=== PATIENT | female | born 2005 | race Asian ===

== ENCOUNTER 2025-02-14 10:42 | Outpatient (AMB) | payer MEDICAID, SELFPAY ==
[2025-02-14 10:55] VITALS: BP 138/83; PULSE 103; RESP 16; TEMP 36; O2SAT 98; BMI 30.2
--- NOTE | 2025-02-14 10:55 | OBCLNT_ITS ---
Vital Signs 02/14/25 10:55 Height 1.57 m Height Method Stated Weight 74.899 kg Weight Measurement Method Standing Scale BMI 30.2 BP 138/83 H Blood Pressure Source Automatic Cuff Blood Pressure Location Left Upper Arm Position Sitting Respiration 16 Pulse 103 H Pulse Source Monitor Temp 96.8 F Temp Source Oral Pulse Oximetry (%) 98 Oxygen Delivery Method Room Air Allergies/Home Meds Allergies & Medications Allergies NKA Allergy (Unknown, Uncoded 02/14/25 10:56) Medication Reconciliation No Known Home Medications 02/14/25 [History Confirmed 02/14/25] Intake Visit Data Collection New Patient or Established: New Patient (never been to [facility]) Reason for Visit:: Seen by Clinical Staff ONLY (RN/MA): No Dumper Bailer Operator Required: No Do You Feel Safe at Home: Yes Authorities Contacted: N/A PCP or OBGYN visit in last 3 months: Yes Hx Now: Yes Are you currently on any form of Control: No Last menstrual period: 07/18/24 Pain Present Currently: No Pain Scale Used: Jeter-Degroot/Numerical Pain scale:: 0 Smoking Status Smoking Status: Never smoker Questionnaires Covid-19 Vaccine Questionnaire Has patient been vacinated for Covid-19 Have you been vacinated for Covid-19: Yes PHQ-9 PHQ-2 Over the last 2 weeks, how often have you been bothered by any of the following problems? 1. Little interest or pleasure in doing things: not at all 2. Feeling down, depressed, or hopeless: not at all Total score: 0 PHQ-9 3. Trouble falling or staying asleep, or sleeping too much: Not at all 4. Feeling tired or having little energy: Not at all 5. Poor appetite or overeating: Not at all 6. Feeling bad about yourself - or that you are a failure or have let yourself or your family down: Not at all 7. Trouble concentrating on things, such as reading the newspaper or watching television: Not at all 8. Moving or speaking so slowly that other people could have noticed? - Or the opposite - being so fidgety or restless that you have been moving around a lot more than usual: not at all 9. Thoughts that you would be better off or of hurting yourself in some way: Not at all Total score: 0 If you checked off any problems, how difficult have these problems made it for you to do your work, take care of things at home, or get along with other people?: not difficult at all Source: Developed by Drs. Rylan Bui, Leesa Ruiz, Ravi Palumbo and colleagues, with an educational george from [employer]. Depression screen completed yes Social History Living Situation History Marital Status: Single Lives With: Family Housing: House Tobacco History Smoking Status: Never smoker Second Hand Smoke Exposure: No Alcohol History Alcohol Intake: Never Domestic Abuse History Do You Feel Safe at Home: Yes Past Medical History Past Medical History Have you ever been diagnosed with any of the following: History of Present Illness HPI Narrative 20-year-old 1 para 0 who comes to the [facility] OB clinic today for her first OB visit with us. Patient has been followed at [facility] for her care. There are no records scanned in the chart yet. Last. Is July 18, 2024. This gives a due date of April 22, 2025. So patient is 30 weeks 5 today. Patient denies any chronic illness. She had a positive history of chlamydia with this that was treated both her and her partner. And test of cure was negative. She denies social habits. Denies surgeries. She was given Tdap at her last visit at [facility]. She is Rh+. Hepatitis B negative. HIV negative. RPR negative. Hep C negative. Her 1 hour glucose was normal. And patient has a follow-up with [facility] February 24. Denies complaints of labor. And reports movement OB Initial Visit Menstrual History Menstrual reliability: definite Flow: normal Menstrual regularity: regular Monthly: Yes Age at menarche: 13 On control pills at conception: No Date of positive home test: 08/24/24 OB History : 1 Para: 0 Hx # Pregnancies: 0 Hx Total # of Abortions (Spontaneous & Elective): 0 # of Living Children: 0 Infection History & Risk Evaluation History of STDs: none HIV risk evaluation: low risk Hepatitis B risk evaluation: low risk Patient or partner has history of Genital Herpes: No Varicella/chicken pox status: immunized Genetic Screening & History Genetic Screening/Teratology Counseling - Includes patient, baby's father, or anyone in either family with: 1. Patient's age 35 years or older as of estimated date of delivery: No 2. Thalassemia (Chinese, Thai, Mediterranean, or Background); MCV less than 80: No 3. Neural Tube Defect (Meningomyelocele, Spina Bifida, or Anencephaly): No 4. Congenital Heart Defect: No 5. Down Syndrome: No 6. Patrice-Sachs (Ashkenazi Rastafarian, Cajun, Ukrainian Stamps): No 7. Stiven Disease (Ashkenazi Rastafarian): No 8. Familial Dysautonomia (Ashkenazi Rastafarian): No 9. Sickle Cell Disease or Trait (): No 10. Hemophilia or other blood disorders: No 11. Muscular Dystrophy: No 12. Cystic Fibrosis: No 13. [place]'s Chorea: No 14. Mental Retardation/Autism: No 15. Other inherited genetic or chromosomal disorder: No 16. Maternal Metabolic Disorder (EG,TYPE 1 Diabetes, PKU): No 17. Patient or baby's father had a child with defects not listed above: No 18. Recurrent loss or a stillbirth: No 19. Medications (including supplements, vitamins, herbs or otc drugs)/illicit/recreational drugs/alcohol since last menstrual period: No 20. Any other: No Infection History 1. Live with someone with TB or exposed to TB: No 2. Rash or viral illness since last menstrual period: No 3. Hepatitis B,C: No 4. History of STD: chlamydia (history of + chlamydia with , partner and patient treated with zithromax, LAYLA was negative) Other (see comments) Source: [employer] OB Flowsheet OB Flowsheet Initial Weight: Not Recorded Date -?-?-?-?-?-?-?-?-?-?-?-?- EGA Weight Edema CTX Effacement BP Fundal ht Pres Dilation Effacement Station Visit Note Alb Glu FHR Mov 02/14/25 -?-?-?-?-?-?-?-?-?-?-?-?- 30w 1d 74.899 kg absent absent 138/83 29 unknown No OB complaints today. Medical release was signed to [facility]. Tdap given to patient last visit. Reports movement. Denies labor complaints. Next visit at [facility] is February 24. PTL precautions provided to patient. Continue vitamins. Increase iron foods and continue IV supplement as well. Return in 2 weeks OB check 154 active Review of Systems Review of Systems Systems Reviewed: All systems reviewed, normal except as documented Exam Narrative Physical exam: Gravid abdomen. heart tones were auscultated. Fundal height 29. General Limitations: no limitations General Appearance: alert, in no apparent distress, comfortable, cooperative, healthy appearing, well developed and well groomed Head Head exam: atraumatic, normocephalic and normal inspection Chest Chest inspection: Present normal inspection and symmetric chest wall rise Resp Respiratory exam: Present normal lung sounds bilaterally Card Cardiovascular exam: Present regular rate, normal rhythm and normal heart sounds Abdominal Abdominal exam: Present soft and normal bowel sounds Psych Psychiatric exam: Present normal affect and normal mood Assessment & Plan Diagnosis / Problem List (1) : Status: Acute Qualifiers: Weeks of gestation: 30 weeks Qualified Code(s): Z3A.30 - 30 weeks gestation of Assessment and Plan: IUP at 30w5 gestation. mild anemia. continue PNV and iron BID. keep MFM appointment 02/24. PYL precaution discussed. advised patient to P/u records at [facility] Additional Plan Follow Up: 2 Weeks Office Procedures OB Clinic LOC & Office Proc's Nursing/Assessment Patient Status: Initial/New Patient OB Clinic Nursing Assessment: BP Monitoring, Update PMH in EMR and Vital Signs OB Clinic Coordination of Care: Consent,records obtained, informed consent, Education Simp Pt/Fam, Lab and Imaging orders and Staff clarify orders Special Needs: Heart tones New Patient Charge New Patient Point Assignment: [id number] New Patient Point Charge: TIP STRETCHER Level 3 ([id number])
== END 2025-02-14 11:16 | disposition home or self-care (01) ==
LOC: HODSOBC 10:42
PROVIDERS: PCP Advanced Practice Midwife; Referring Provider Advanced Practice Midwife; Supervising Provider Advanced Practice Midwife; Visit Provider Advanced Practice Midwife
DX: Z34.03 Encounter for supervision of normal first pregnancy, third trimester (principal); Z3A.30 30 weeks gestation of pregnancy
CPT/HCPCS: 99203; G0463

== ENCOUNTER 2025-02-28 13:01 | Outpatient (AMB) | payer MEDICAID, SELFPAY ==
--- NOTE | 2025-02-28 13:06 | OBCLNT_ITS ---
Vital Signs 02/28/25 13:14 Height 1.57 m Height Method Stated Weight 75.807 kg Weight Measurement Method Standing Scale BMI 30.7 BP 121/78 Blood Pressure Source Automatic Cuff Blood Pressure Location Right Upper Arm Position Sitting Respiration 18 Pulse 85 Pulse Source Monitor Temp 98.2 F Temp Source Temporal Artery Scan Pulse Oximetry (%) 98 Oxygen Delivery Method Room Air Allergies/Home Meds Allergies & Medications Allergies NKA Allergy (Unknown, Uncoded 02/28/25 13:15) Medication Reconciliation No Known Home Medications 02/14/25 [History Confirmed 02/28/25] Intake Visit Data Collection New Patient or Established: Established Patient (seen at [facility] within 3 years) Reason for Visit:: obc Seen by Clinical Staff ONLY (RN/MA): No Resistor Coater Required: No Do You Feel Safe at Home: Yes Authorities Contacted: N/A PCP or OBGYN visit in last 3 months: Yes Hx Now: Yes Are you currently on any form of Control: No Pain Present Currently: No Pain Scale Used: Jeter-Degroot/Numerical Pain scale:: 0 Smoking Status Smoking Status: Never smoker Questionnaires Covid-19 Vaccine Questionnaire Has patient been vacinated for Covid-19 Have you been vacinated for Covid-19: Yes PHQ-9 PHQ-2 Over the last 2 weeks, how often have you been bothered by any of the following problems? 1. Little interest or pleasure in doing things: not at all PHQ-9 3. Trouble falling or staying asleep, or sleeping too much: Not at all 4. Feeling tired or having little energy: Not at all 5. Poor appetite or overeating: Not at all 6. Feeling bad about yourself - or that you are a failure or have let yourself or your family down: Not at all 7. Trouble concentrating on things, such as reading the newspaper or watching television: Not at all 8. Moving or speaking so slowly that other people could have noticed? - Or the opposite - being so fidgety or restless that you have been moving around a lot more than usual: not at all 9. Thoughts that you would be better off or of hurting yourself in some way: Not at all Source: Developed by Drs. Rylan Bui, Leesa Ruiz, Ravi Palumbo and colleagues, with an educational george from [employer]. Depression screen completed yes Social History Living Situation History Lives With: Family Housing: House Tobacco History Smoking Status: Never smoker Second Hand Smoke Exposure: No Alcohol History Alcohol Intake: Never Domestic Abuse History Do You Feel Safe at Home: Yes Past Medical History Past Medical History Have you ever been diagnosed with any of the following: Visit OB Visit Log OB Flowsheet Initial Weight: Not Recorded Date -?-?-?-?-?-?-?-?-?-?-?-?- EGA Weight Edema CTX Effacement BP Fundal ht Pres Dilation Effacement Station Visit Note Alb Glu FHR Mov 02/14/25 -?-?-?-?-?-?-?-?-?-?-?-?- 30w 1d 74.899 kg absent absent 138/83 29 unknown No OB complaints today. Medical release was signed to [facility]. Tdap given to patient last visit. Reports movement. Denies labor complaints. Next visit at [facility] is February 24. PTL precautions provided to patient. Continue vitamins. Increase iron foods and continue IV supplement as well. Return in 2 weeks OB check 154 active 02/28/25 -?-?-?-?-?-?-?-?-?-?-?-?- 32w 1d 75.807 kg absent absent 121/78 32 cephalic fetus active, no labor complaints. patient will p/u records from [facility] today. increase fluids. tpl precaution, fkc bid 150 active GÓMEZ Calculator Estimated Delivery Date Method Current WG Current Estimate 04/24/25 LMP (Certain) 32w 1d Assessment & Plan Diagnosis / Problem List (1) : Status: Acute Qualifiers: Weeks of gestation: 30 weeks Qualified Code(s): Z3A.30 - 30 weeks gestation of Plan ptl precaution, discuss fkc, continue PNV, increase fluid. records pending. rtc 2 week Additional Plan Follow Up: 2 Weeks (2 week obc) Office Procedures OB Clinic LOC & Office Proc's Nursing/Assessment Patient Status: Established Patient OB Clinic Nursing Assessment: Medication Reconciliation, Update PMH in EMR and Vital Signs OB Clinic Coordination of Care: Complex Care and Chronic Disease 1-5, Consent,records obtained, informed consent, Education Simp Pt/Fam and Staff clarify orders Established Patient Charge Established Patient Point Assignment: 85 Established Patient Point Charge: EP Level 3 (80-115)
[2025-02-28 13:14] VITALS: BP 121/78; PULSE 85; RESP 18; TEMP 36.8; O2SAT 98; BMI 30.7
== END 2025-02-28 13:21 | disposition home or self-care (01) ==
LOC: HODSOBC 13:01
PROVIDERS: Supervising Provider Advanced Practice Midwife; Visit Provider Advanced Practice Midwife
DX: O09.613 Supervision of young primigravida, third trimester (principal); Z3A.32 32 weeks gestation of pregnancy
CPT/HCPCS: 99213; G0463

== ENCOUNTER 2025-03-14 12:57 | Outpatient (AMB) | payer MEDICAID, SELFPAY ==
--- NOTE | 2025-03-14 13:10 | AMB.OBVISIT ---
Vital Signs 03/14/25 13:19 Height 1.57 m Height Method Stated Weight 76.884 kg Weight Measurement Method Standing Scale BMI 31.1 BP 123/81 Blood Pressure Source Automatic Cuff Blood Pressure Location Left Upper Arm Position Sitting Respiration 18 Pulse 91 Pulse Source Monitor Temp 97.2 F Temp Source Oral Pulse Oximetry (%) 97 Oxygen Delivery Method Room Air Allergies/Home Meds Allergies & Medications Allergies NKA Allergy (Unknown, Uncoded 03/14/25 13:10) Medication Reconciliation No Known Home Medications 02/14/25 [History Confirmed 03/14/25] Intake Visit Data Collection New Patient or Established: Established Patient (seen at [facility] within 3 years) Reason for Visit:: obc Seen by Clinical Staff ONLY (RN/MA): No Wood Barker Required: No Do You Feel Safe at Home: Yes Authorities Contacted: N/A PCP or OBGYN visit in last 3 months: Yes Date of Last PCP or OBGYN visit: 02/14/25 Hx Now: Yes Are you currently on any form of Control: No Pain Present Currently: No Pain Scale Used: Jeter-Degroot/Numerical Pain scale:: 0 Smoking Status Smoking Status: Never smoker Questionnaires Covid-19 Vaccine Questionnaire Has patient been vacinated for Covid-19 Have you been vacinated for Covid-19: Yes PHQ-9 PHQ-2 Over the last 2 weeks, how often have you been bothered by any of the following problems? 1. Little interest or pleasure in doing things: not at all 2. Feeling down, depressed, or hopeless: not at all Total score: 0 PHQ-9 3. Trouble falling or staying asleep, or sleeping too much: Not at all 4. Feeling tired or having little energy: Not at all 5. Poor appetite or overeating: Not at all 6. Feeling bad about yourself - or that you are a failure or have let yourself or your family down: Not at all 7. Trouble concentrating on things, such as reading the newspaper or watching television: Not at all 8. Moving or speaking so slowly that other people could have noticed? - Or the opposite - being so fidgety or restless that you have been moving around a lot more than usual: not at all 9. Thoughts that you would be better off or of hurting yourself in some way: Not at all Total score: 0 If you checked off any problems, how difficult have these problems made it for you to do your work, take care of things at home, or get along with other people?: not difficult at all Source: Developed by Drs. Rylan Bui, Leesa Ruiz, Ravi Palumbo and colleagues, with an educational george from [employer]. Depression screen completed yes Social History Living Situation History Lives With: Family Housing: House Tobacco History Smoking Status: Never smoker Second Hand Smoke Exposure: No Alcohol History Alcohol Intake: Never Domestic Abuse History Do You Feel Safe at Home: Yes Past Medical History Past Medical History Have you ever been diagnosed with any of the following: Care OB Visit Log OB Flowsheet Initial Weight: Not Recorded Date <del>?</del> EGA Weight Edema CTX Effacement BP Fundal ht Pres Dilation Effacement Station Visit Note Alb Glu FHR Mov 02/14/25 <del>?</del> 30w 1d 74.899 kg absent absent 138/83 29 unknown No OB complaints today. Medical release was signed to [facility]. Tdap given to patient last visit. Reports movement. Denies labor complaints. Next visit at [facility] is February 24. PTL precautions provided to patient. Continue vitamins. Increase iron foods and continue IV supplement as well. Return in 2 weeks OB check 154 active 02/28/25 <del>?</del> 32w 1d 75.807 kg absent absent 121/78 32 cephalic fetus active, no labor complaints. patient will p/u records from [facility] today. increase fluids. tpl precaution, fkc bid 150 active 03/14/25 <del>?</del> 34w 1d 76.884 kg absent absent 123/81 34 cephalic fetus active, no PTL complaints, no leaking or bleeding, GBS NV, ptl precaution, fkc bid.rtc 2 week 154 active GÓMEZ Calculator Estimated Delivery Date Method Current WG Current Estimate 04/24/25 Ultrasound #1 34w 1d Other Estimates 04/24/25 LMP (Certain) 34w 1d Assessment & Plan Diagnosis / Problem List (1) Encounter for care in third trimester of first : Status: Acute Plan discuss ptl precaution, fkc bid, discuss diet nad weight. walk 40 minute daily, rtc 2 week obc, GBS nv Additional Plan Follow Up: 2 Weeks (obc) Office Procedures OB Clinic LOC & Office Proc's Nursing/Assessment Patient Status: Established Patient OB Clinic Nursing Assessment: BP Monitoring, Medication Reconciliation, Update PMH in EMR and Vital Signs OB Clinic Coordination of Care: Consent,records obtained, informed consent, Education Simp Pt/Fam and Staff clarify orders Special Needs: Heart tones Established Patient Charge Established Patient Point Assignment: 105 Established Patient Point Charge: EP Level 3 (80-115)
[2025-03-14 13:19] VITALS: BP 123/81; PULSE 91; RESP 18; TEMP 36.2; O2SAT 97; BMI 31.1
== END 2025-03-14 13:41 | disposition home or self-care (01) ==
LOC: HODSOBC 12:57
PROVIDERS: Supervising Provider Advanced Practice Midwife; Visit Provider Advanced Practice Midwife
DX: O09.613 Supervision of young primigravida, third trimester (principal); Z3A.34 34 weeks gestation of pregnancy
CPT/HCPCS: 81001; 99213; G0463

== ENCOUNTER 2025-03-28 12:52 | Outpatient (AMB) | payer MEDICAID, SELFPAY ==
[2025-03-28 13:18] VITALS: BP 123/81; PULSE 90; RESP 18; TEMP 36.2; O2SAT 98; BMI 31.5
--- NOTE | 2025-03-28 13:18 | OBCLNT_ITS ---
Vital Signs 03/28/25 13:18 Height 1.57 m Height Method Stated Weight 77.791 kg Weight Measurement Method Standing Scale BMI 31.5 BP 123/81 Blood Pressure Source Automatic Cuff Blood Pressure Location Left Upper Arm Position Sitting Respiration 18 Pulse 90 Pulse Source Monitor Temp 97.2 F Temp Source Oral Pulse Oximetry (%) 98 Oxygen Delivery Method Room Air Allergies/Home Meds Allergies & Medications Allergies NKA Allergy (Unknown, Uncoded 03/28/25 13:19) Medication Reconciliation No Known Home Medications 02/14/25 [History Confirmed 03/28/25] Intake Visit Data Collection New Patient or Established: Established Patient (seen at [facility] within 3 years) Reason for Visit:: obc Seen by Clinical Staff ONLY (RN/MA): No Railway Signal Technician Required: No Do You Feel Safe at Home: Yes Authorities Contacted: N/A PCP or OBGYN visit in last 3 months: Yes Date of Last PCP or OBGYN visit: 03/14/25 Hx Now: Yes Are you currently on any form of Control: No Pain Present Currently: No Pain Scale Used: Jeter-Degroot/Numerical Pain scale:: 0 Smoking Status Smoking Status: Never smoker Questionnaires Covid-19 Vaccine Questionnaire Has patient been vacinated for Covid-19 Have you been vacinated for Covid-19: Yes PHQ-9 PHQ-2 Over the last 2 weeks, how often have you been bothered by any of the following problems? 1. Little interest or pleasure in doing things: not at all 2. Feeling down, depressed, or hopeless: not at all Total score: 0 PHQ-9 5. Poor appetite or overeating: Not at all 6. Feeling bad about yourself - or that you are a failure or have let yourself or your family down: Not at all 7. Trouble concentrating on things, such as reading the newspaper or watching television: Not at all 8. Moving or speaking so slowly that other people could have noticed? - Or the opposite - being so fidgety or restless that you have been moving around a lot more than usual: not at all 9. Thoughts that you would be better off or of hurting yourself in some way: Not at all If you checked off any problems, how difficult have these problems made it for you to do your work, take care of things at home, or get along with other people?: not difficult at all Source: Developed by Drs. Rylan Bui, Leesa Ruiz, Ravi Palumbo and colleagues, with an educational george from [employer] Depression screen completed yes Social History Living Situation History Lives With: Family Housing: House Tobacco History Smoking Status: Never smoker Second Hand Smoke Exposure: No Alcohol History Alcohol Intake: Never Domestic Abuse History Do You Feel Safe at Home: Yes Care OB Visit Log OB Flowsheet Initial Weight: Not Recorded Date -?-?-?-?-?-?-?-?-?-?-?-?- EGA Weight BP Alb Glu CTX Pres Fundal ht FHR Mov Dilation Station Effacement Hx Notes Visit Note 02/14/25 -?-?-?-?-?-?-?-?-?-?-?-?- 30w 1d 74.899 kg 138/83 absent unknown 29 154 active No OB complaints today. Medical release was signed to [facility]. Tdap given to patient last visit. Reports movement. Denies labor complaints. Next visit at [facility] is February 24. PTL precautions provided to patient. Continue vitamins. Increase iron foods and continue IV supplement as well. Return in 2 weeks OB check 02/28/25 -?-?-?-?-?-?-?-?-?-?-?-?- 32w 1d 75.807 kg 121/78 absent cephalic 32 150 active fetus active, no pret erm labor complaints. patient will p/u records from [facility] today. increase fluids. tpl precaution, fkc bid 03/14/25 -?-?-?-?-?-?-?-?-?-?-?-?- 34w 1d 76.884 kg 123/81 absent cephalic 34 154 active fetus active, no PTL complaints, no leaking or bleeding, GBS NV, ptl precaution, fkc bid.rtc 2 week 03/28/25 -?-?-?-?-?-?-?-?-?-?-?-?- 36w 1d 77.791 kg 123/81 absent cephalic 36 156 active no ob complaints, fetus active, no labor complaints GBS today, discuss labor precaution, fkc bid, discuss danger s/s. RTC 1 week GBS today, discuss labor pre caution,discuss fkc bid, discuss danger s/s. RTC 1 week. discuss weight gain and exercise. reviewed FKC bid GÓMEZ Calculator Estimated Delivery Date Method Current WG Current Estimate 04/24/25 Ultrasound #1 36w 1d Other Estimates 04/24/25 LMP (Certain) 36w 1d Comments: 20 yo lmp 07/18/24. EDC 04/24/25. O+,abs-,rpr;;nr, rub imm, hbsag-,hiv-,HC-, GC-/CT+, LAYLA-, 1hr gtt wnl, TDAP given Office Procedures OB Clinic LOC & Office Proc's Nursing/Assessment Patient Status: Established Patient OB Clinic Nursing Assessment: Medication Reconciliation, Update PMH in EMR and Vital Signs OB Clinic Coordination of Care: Education Complex Pt/Fam, Consent,records obtained, informed consent and Staff clarify orders Special Needs: Heart tones Established Patient Charge Established Patient Point Assignment: 95 Established Patient Point Charge: EP Level 3 (80-115) Assessment & Plan Diagnosis / Problem List (1) Encounter for care in third trimester of first : Status: Acute Plan GBS today, discuss labor precaution and ER precaution, FKC bid. increase fluid, discuss diet and exercise. continue PNV, RTC 1 week Additional Plan Follow Up: 1 Week (obc)
== END 2025-03-28 13:34 | disposition home or self-care (01) ==
LOC: HODSOBC 12:52
PROVIDERS: Supervising Provider Advanced Practice Midwife; Visit Provider Advanced Practice Midwife
DX: O09.613 Supervision of young primigravida, third trimester (principal); Z3A.36 36 weeks gestation of pregnancy
CPT/HCPCS: 81001; 99213; G0463

== ENCOUNTER 2025-04-04 13:25 | Outpatient (AMB) | payer MEDICAID, SELFPAY ==
[2025-04-04 13:29] VITALS: BP 120/81; PULSE 80; RESP 16; TEMP 36.6; O2SAT 98; BMI 31.7
--- NOTE | 2025-04-04 13:29 | OBCLNT_ITS ---
Vital Signs 04/04/25 13:29 Height 1.57 m Height Method Stated Weight 78.245 kg Weight Measurement Method Standing Scale BMI 31.7 BP 120/81 Blood Pressure Source Automatic Cuff Blood Pressure Location Right Upper Arm Position Sitting Respiration 16 Pulse 80 Pulse Source Monitor Temp 97.9 F Temp Source Oral Pulse Oximetry (%) 98 Oxygen Delivery Method Room Air Allergies/Home Meds Allergies & Medications Allergies NKA Allergy (Unknown, Uncoded 04/04/25 13:30) Medication Reconciliation No Known Home Medications 02/14/25 [History Confirmed 04/04/25] Intake Visit Data Collection New Patient or Established: Established Patient (seen at [facility] within 3 years) Reason for Visit:: CARE Seen by Clinical Staff ONLY (RN/MA): No Miter Saw Operator Required: No Do You Feel Safe at Home: Yes Authorities Contacted: N/A PCP or OBGYN visit in last 3 months: Yes Hx Now: Yes Are you currently on any form of Control: No Pain Present Currently: No Pain Scale Used: Jeter-Degroot/Numerical Pain scale:: 0 Smoking Status Smoking Status: Never smoker Questionnaires Covid-19 Vaccine Questionnaire Has patient been vacinated for Covid-19 Have you been vacinated for Covid-19: Yes PHQ-9 PHQ-2 Over the last 2 weeks, how often have you been bothered by any of the following problems? 1. Little interest or pleasure in doing things: not at all 2. Feeling down, depressed, or hopeless: not at all Total score: 0 PHQ-9 3. Trouble falling or staying asleep, or sleeping too much: Not at all 4. Feeling tired or having little energy: Not at all 5. Poor appetite or overeating: Not at all 6. Feeling bad about yourself - or that you are a failure or have let yourself or your family down: Not at all 7. Trouble concentrating on things, such as reading the newspaper or watching television: Not at all 8. Moving or speaking so slowly that other people could have noticed? - Or the opposite - being so fidgety or restless that you have been moving around a lot more than usual: not at all 9. Thoughts that you would be better off or of hurting yourself in some way: Not at all Total score: 0 Source: Developed by Leesa Guzman B.W. Joseph, Ravi Palumbo and colleagues, with an educational george from [employer]. Depression screen completed yes Social History Living Situation History Lives With: Family Housing: House Tobacco History Smoking Status: Never smoker Second Hand Smoke Exposure: No Alcohol History Alcohol Intake: Never Domestic Abuse History Do You Feel Safe at Home: Yes Care OB Visit Log OB Flowsheet Initial Weight: Not Recorded Date -?-?-?-?-?-?-?-?-?-?-?-?- EGA Weight BP Alb Glu CTX Pres Fundal ht FHR Mov Dilation Station Effacement Hx Notes Visit Note 02/14/25 -?-?-?-?-?-?-?-?-?-?-?-?- 30w 1d 74.899 kg 138/83 absent unknown 29 154 active No OB complaints today. Medical release was signed to [facility]. Tdap given to patient last visit. Reports movement. Denies labor complaints. Next visit at maternal[facility] medicine is February 24. PTL precautions provided to patient. Continue vitamins. Increase iron foods and continue IV supplement as well. Return in 2 weeks OB check 02/28/25 -?-?-?-?-?-?-?-?-?-?-?-?- 32w 1d 75.807 kg 121/78 absent cephalic 32 150 active fetus active, no labor complaints. patient will p/u records from [facility] today. increase fluids. tpl precaution, fkc bid 03/14/25 -?-?-?-?-?-?-?-?-?-?-?-?- 34w 1d 76.884 kg 123/81 absent cephalic 34 154 active fetus active, no PTL complaints, no leaking or bleeding, GBS NV, ptl precaution, fkc bid.rtc 2 week 03/28/25 -?-?-?-?-?-?-?-?-?-?-?-?- 36w 1d 77.791 kg 123/81 absent cephalic 36 156 active no ob complaints, fetus active, no labor complaints GBS today, discuss labor precaution, fkc bid, discuss danger s/s. RTC 1 week GBS today, discuss labor pre caution,discuss fkc bid, discuss danger s/s. RTC 1 week. discuss weight gain and exercise. reviewed FKC bid 04/04/25 -?-?-?-?-?-?-?-?-?-?-?-?- 37w 1d 78.245 kg 120/81 absent cephalic 37 156 active c/o pressure and cramps, reports good FM, denies leaking or bleeding discuss FKC bid, discuss labor precaution and ER precaution. increase fluids. rtc 1 week GÓMEZ Calculator Estimated Delivery Date Method Current WG Current Estimate 04/24/25 Ultrasound #1 37w 1d Other Estimates 04/24/25 LMP (Certain) 37w 1d Comments: 20 yo , LMP 07/18/25. EDC 04/22/25. O+,abs-,rpr;;nr, rub imm, hbsag-,hiv-,HC-, GC-, CT+, LAYLA-, 3rd tri lab wnl Office Procedures OB Clinic LOC & Office Proc's Nursing/Assessment Patient Status: Established Patient OB Clinic Nursing Assessment: Medication Reconciliation, Update PMH in EMR and Vital Signs OB Clinic Coordination of Care: Complex Care and Chronic Disease 1-5, Consent,records obtained, informed consent, Education Simp Pt/Fam, Lab and Imaging orders, Results/Orders obtained and Staff clarify orders Special Needs: Heart tones Established Patient Charge Established Patient Point Assignment: 135 Established Patient Point Charge: EP Level 4 (120-155) Assessment & Plan Diagnosis / Problem List (1) Encounter for care in third trimester of first : Status: Acute Plan discuss labor precaution, fkc bid. increase fluid. discussed ER precaution, rtc 1 week obc Additional Plan Follow Up: 1 Week (obc)
== END 2025-04-04 14:13 | disposition home or self-care (01) ==
PROVIDERS: Supervising Provider Advanced Practice Midwife; Visit Provider Advanced Practice Midwife
DX: O09.613 Supervision of young primigravida, third trimester (principal); Z3A.37 37 weeks gestation of pregnancy
CPT/HCPCS: 99214; G0463

== ENCOUNTER 2025-04-11 13:51 | Outpatient (AMB) | payer MEDICAID, SELFPAY ==
[2025-04-11 14:29] VITALS: BP 137/80; PULSE 80; RESP 16; TEMP 36.5; O2SAT 98; BMI 32.2
--- NOTE | 2025-04-11 14:29 | OBCLNT_ITS ---
Vital Signs 04/11/25 14:29 Height 1.57 m Height Method Stated Weight 79.379 kg Weight Measurement Method Standing Scale BMI 32.2 BP 137/80 H Blood Pressure Source Automatic Cuff Blood Pressure Location Right Upper Arm Position Sitting Respiration 16 Pulse 80 Pulse Source Monitor Temp 97.7 F Temp Source Oral Pulse Oximetry (%) 98 Oxygen Delivery Method Room Air Allergies/Home Meds Allergies & Medications Allergies NKA Allergy (Unknown, Uncoded 04/11/25 14:30) Medication Reconciliation No Known Home Medications 02/14/25 [History Confirmed 04/11/25] Intake Visit Data Collection New Patient or Established: Established Patient (seen at [facility] within 3 years) Reason for Visit:: CARE Seen by Clinical Staff ONLY (RN/MA): No Shuttle Repairer Required: No Do You Feel Safe at Home: Yes Authorities Contacted: N/A PCP or OBGYN visit in last 3 months: Yes Hx Now: Yes Are you currently on any form of Control: No Pain Present Currently: No Pain Scale Used: Jeter-Degroot/Numerical Pain scale:: 0 Smoking Status Smoking Status: Never smoker Questionnaires Covid-19 Vaccine Questionnaire Has patient been vacinated for Covid-19 Have you been vacinated for Covid-19: Yes PHQ-9 PHQ-2 Over the last 2 weeks, how often have you been bothered by any of the following problems? 1. Little interest or pleasure in doing things: not at all 2. Feeling down, depressed, or hopeless: not at all Total score: 0 PHQ-9 3. Trouble falling or staying asleep, or sleeping too much: Not at all 4. Feeling tired or having little energy: Not at all 5. Poor appetite or overeating: Not at all 6. Feeling bad about yourself - or that you are a failure or have let yourself or your family down: Not at all 7. Trouble concentrating on things, such as reading the newspaper or watching television: Not at all 8. Moving or speaking so slowly that other people could have noticed? - Or the opposite - being so fidgety or restless that you have been moving around a lot more than usual: not at all 9. Thoughts that you would be better off or of hurting yourself in some way: Not at all Total score: 0 Source: Developed by Drs. Rylan Bui, Leesa Ruiz, Ravi Palumbo and colleagues, with an educational george from [employer]. Depression screen completed yes Social History Living Situation History Lives With: Family Housing: House Tobacco History Smoking Status: Never smoker Second Hand Smoke Exposure: No Alcohol History Alcohol Intake: Never Domestic Abuse History Do You Feel Safe at Home: Yes Care OB Visit Log OB Flowsheet Initial Weight: Not Recorded Date -?-?-?-?-?-?-?-?-?-?-?-?- EGA Weight BP Alb Glu CTX Pres Fundal ht FHR Mov Dilation Station Effacement Hx Notes Visit Note 02/14/25 -?-?-?-?-?-?-?-?-?-?-?-?- 30w 1d 74.899 kg 138/83 absent unknown 29 154 active No OB complaints today. Medical release was signed to [facility]. Tdap given to patient last visit. Reports movement. Denies labor complaints. Next visit at maternal- medicine is February 24. PTL precautions provided to patient. Continue vitamins. Increase iron foods and continue IV supplement as well. Return in 2 weeks OB check 02/28/25 -?-?-?-?-?-?-?-?-?-?-?-?- 32w 1d 75.807 kg 121/78 absent cephalic 32 150 active fetus active, no labor complaints. patient will p/u records from [facility] today. increase fluids. tpl precaution, fkc bid 03/14/25 -?-?-?-?-?-?-?-?-?-?-?-?- 34w 1d 76.884 kg 123/81 absent cephalic 34 154 active fetus active, no PTL complaints, no leaking or bleeding, GBS NV, ptl precaution, fkc bid.rtc 2 week 03/28/25 -?-?-?-?-?-?-?-?-?-?-?-?- 36w 1d 77.791 kg 123/81 absent cephalic 36 156 active no ob complaints, fetus active, no labor complaints GBS today, discuss labor precaution, fkc bid, discuss danger s/s. RTC 1 week GBS today, discuss labor pre caution,discuss fkc bid, discuss danger s/s. RTC 1 week. discuss weight gain and exercise. reviewed FKC bid 04/04/25 -?-?-?-?-?-?-?-?-?-?-?-?- 37w 1d 78.245 kg 120/81 absent cephalic 37 156 active c/o pressure and cramps, reports good FM, denies leaking or bleeding discuss FKC bid, discuss labor precaution and ER precaution. increase fluids. rtc 1 week 04/11/25 -?-?-?-?-?-?-?-?-?-?-?-?- 38w 1d 79.379 kg 137/80 occasional cephalic 37 36 active 1 -3 50 c/o increased pressure and cramps, no LOF or bleeding, fetus active discuss labor precaution, fkc bid, comfort measure for prodromal labor. discuss danger s/s and ER precaution GÓMEZ Calculator Estimated Delivery Date Method Current WG Current Estimate 04/24/25 Ultrasound #1 38w 1d Other Estimates 04/24/25 LMP (Certain) 38w 1d Notes Visit Date: 04/11/25 Last Updated by: Adry Farmer CNM 20 yo . lmp: 07/18/24. EDC 04/24/24, O+,abs-,rpr;;nr, GC-/CT+, LAYLA: GC-?CT-, GTT normal Office Procedures OB Clinic LOC & Office Proc's Nursing/Assessment Patient Status: Established Patient OB Clinic Nursing Assessment: Medication Reconciliation, Update PMH in EMR and Vital Signs OB Clinic Coordination of Care: Complex Care and Chronic Disease 1-5, Consent,records obtained, informed consent, Education Simp Pt/Fam, Lab and Imaging orders, Results/Orders obtained and Staff clarify orders Special Needs: Heart tones Established Patient Charge Established Patient Point Assignment: 135 Established Patient Point Charge: EP Level 4 (120-155) Assessment & Plan Diagnosis / Problem List (1) Encounter for care in third trimester of first : Status: Acute Plan Discussed labor precautions with patient. Discussed ER precautions and danger signs and symptoms. Discussed PIH precautions. Patient to do kick count twice a day. Return in a week OB Additional Plan Follow Up: 1 Week (obc)
== END 2025-04-11 14:44 | disposition home or self-care (01) ==
LOC: HODSOBC 13:51
PROVIDERS: PCP Advanced Practice Midwife; Referring Provider Advanced Practice Midwife; Supervising Provider Advanced Practice Midwife; Visit Provider Advanced Practice Midwife
DX: Z34.03 Encounter for supervision of normal first pregnancy, third trimester (principal); Z3A.38 38 weeks gestation of pregnancy
CPT/HCPCS: 99214; G0463

== ENCOUNTER 2025-04-19 13:09 | Outpatient (AMB) | payer MEDICAID, SELFPAY ==
[2025-04-19 13:20] VITALS: BP 119/71; PULSE 81; RESP 17; TEMP 36.8; O2SAT 98; BMI 33.3
--- NOTE | 2025-04-19 13:20 | OBCLNT_ITS ---
Vital Signs 04/19/25 13:20 Height 1.55 m Height Method Stated Weight 79.946 kg Weight Measurement Method Standing Scale BMI 33.3 BP 119/71 Blood Pressure Source Automatic Cuff Blood Pressure Location Right Upper Arm Position Sitting Respiration 17 Pulse 81 Pulse Source Monitor Temp 98.3 F Temp Source Temporal Artery Scan Pulse Oximetry (%) 98 Oxygen Delivery Method Room Air Allergies/Home Meds Allergies & Medications Allergies NKA Allergy (Unknown, Uncoded 04/19/25 13:21) Medication Reconciliation No Known Home Medications 02/14/25 [History Confirmed 04/19/25] Intake Visit Data Collection New Patient or Established: Established Patient (seen at [facility] within 3 years) Reason for Visit:: OBC Seen by Clinical Staff ONLY (RN/MA): No Pie Icer Machine Required: No Do You Feel Safe at Home: Yes Authorities Contacted: N/A PCP or OBGYN visit in last 3 months: Yes Date of Last PCP or OBGYN visit: 04/11/25 Hx Now: Yes Are you currently on any form of Control: No Pain Present Currently: No Pain Scale Used: Jeter-Degroot/Numerical Pain scale:: 0 Smoking Status Smoking Status: Never smoker Questionnaires Covid-19 Vaccine Questionnaire Has patient been vacinated for Covid-19 Have you been vacinated for Covid-19: Yes PHQ-9 PHQ-2 Over the last 2 weeks, how often have you been bothered by any of the following problems? 1. Little interest or pleasure in doing things: not at all 2. Feeling down, depressed, or hopeless: not at all Total score: 0 PHQ-9 3. Trouble falling or staying asleep, or sleeping too much: Not at all 4. Feeling tired or having little energy: Not at all 5. Poor appetite or overeating: Not at all 6. Feeling bad about yourself - or that you are a failure or have let yourself or your family down: Not at all 7. Trouble concentrating on things, such as reading the newspaper or watching television: Not at all 8. Moving or speaking so slowly that other people could have noticed? - Or the opposite - being so fidgety or restless that you have been moving around a lot more than usual: not at all 9. Thoughts that you would be better off or of hurting yourself in some way: Not at all Total score: 0 If you checked off any problems, how difficult have these problems made it for you to do your work, take care of things at home, or get along with other people?: not difficult at all Source: Developed by Drs. Rylan Bui, Leesa Ruiz, Ravi Palumbo and colleagues, with an educational george from [employer]. Depression screen completed yes Social History Living Situation History Lives With: Family Housing: House Tobacco History Smoking Status: Never smoker Second Hand Smoke Exposure: No Alcohol History Alcohol Intake: Never Domestic Abuse History Do You Feel Safe at Home: Yes Care OB Visit Log OB Flowsheet Initial Weight: Not Recorded Date -?-?-?-?-?-?-?-?-?-?-?-?- EGA Weight BP Alb Glu CTX Pres Fundal ht FHR Mov Dilation Station Effacement Hx Notes Visit Note 02/14/25 -?-?-?-?-?-?-?-?-?-?-?-?- 30w 1d 74.899 kg 138/83 absent unknown 29 154 active No OB complaints today. Medical release was signed to [facility]. Tdap given to patient last visit. Reports movement. Denies labor complaints. Next visit at maternal- medicine is February 24. PTL precautions provided to patient. Continue vitamins. Increase iron foods and continue IV supplement as well. Return in 2 weeks OB check 02/28/25 -?-?-?-?-?-?-?-?-?-?-?-?- 32w 1d 75.807 kg 121/78 absent cephalic 32 150 active fetus active, no labor complaints. patient will p/u records from [facility] today. increase fluids. tpl precaution, fkc bid 03/14/25 -?-?-?-?-?-?-?-?-?-?-?-?- 34w 1d 76.884 kg 123/81 absent cephalic 34 154 active fetus active, no PTL complaints, no leaking or bleeding, GBS NV, ptl precaution, fkc bid.rtc 2 week 03/28/25 -?-?-?-?-?-?-?-?-?-?-?-?- 36w 1d 77.791 kg 123/81 absent cephalic 36 156 active no ob complaints, fetus active, no labor complaints GBS today, discuss labor precaution, fkc bid, discuss danger s/s. RTC 1 week GBS today, discuss labor pre caution,discuss fkc bid, discuss danger s/s. RTC 1 week. discuss weight gain and exercise. reviewed FKC bid 04/04/25 -?-?-?-?-?-?-?-?-?-?-?-?- 37w 1d 78.245 kg 120/81 absent cephalic 37 156 active c/o pressure and cramps, reports good FM, denies leaking or bleeding discuss FKC bid, discuss labor precaution and ER precaution. increase fluids. rtc 1 week 04/11/25 -?-?-?-?-?-?-?-?-?-?-?-?- 38w 1d 79.379 kg 137/80 occasional cephalic 37 36 active 1 -3 50 c/o increased pressure and cramps, no LOF or bleeding, fetus active discuss labor precaution, fkc bid, comfort measure for prodromal labor. discuss danger s/s and ER precaution 04/19/25 -?-?-?-?-?-?-?-?-?-?-?-?- 39w 2d 79.946 kg 119/71 occasional cephalic 38 145 active 4 -1 70 increase pressure and cramps, no leaking or bleeding,fetus active sched IOL 04/24/25. discuss labor precaution, fkc bid, discuss ER precaution and danger s/s.rtc 1 week GÓMEZ Calculator Estimated Delivery Date Method Current WG Current Estimate 04/24/25 Ultrasound #1 39w 2d Other Estimates 04/24/25 LMP (Certain) 39w 2d Notes Visit Date: 04/19/25 Last Updated by: Adry Farmer CNM GBS- Visit Date: 04/11/25 Last Updated by: Adry Farmer CNM 20 yo . lmp: 07/18/24. EDC 04/24/24, O+,abs-,rpr;;nr, GC-/CT+, LAYLA: GC-?CT-, GTT normal Office Procedures OB Clinic LOC & Office Proc's Nursing/Assessment Patient Status: Established Patient OB Clinic Nursing Assessment: Medication Reconciliation, Update PMH in EMR and Vital Signs OB Clinic Coordination of Care: Complex Care and Chronic Disease 1-5, Consent ,records obtained, informed consent, Education Simp Pt/Fam and Staff clarify orders Special Needs: Heart tones Established Patient Charge Established Patient Point Assignment: 115 Established Patient Point Charge: EP Level 3 (80-115) Assessment & Plan Diagnosis / Problem List (1) Encounter for care in third trimester of first : Status: Acute Plan schedule IOL 04/24/25, review labor precaution, fkc bid. ER precaution and danger s/s. rtc 04/24 for ob check Additional Plan Follow Up: 1 Week (obc)
== END 2025-04-19 13:33 | disposition home or self-care (01) ==
LOC: HODSOBC 13:09
PROVIDERS: PCP Advanced Practice Midwife; Referring Provider Advanced Practice Midwife; Supervising Provider Advanced Practice Midwife; Visit Provider Advanced Practice Midwife
DX: Z34.03 Encounter for supervision of normal first pregnancy, third trimester (principal); Z3A.39 39 weeks gestation of pregnancy
CPT/HCPCS: 99213; G0463

== ENCOUNTER 2025-04-19 23:58 | Inpatient (IN) | payer BC, MEDICAID, SELFPAY ==
[2025-04-20] VITALS (218 sets, daily range): BP systolic 117–184; BP diastolic 59–101; PULSE 52–162; RESP 18–98; TEMP 36.6–37.5; O2SAT 80–100; BMI 33.6
[2025-04-20 03:18] LABS: Basophils # (Auto) 0.1 Thou/mm3 (0.0-0.2); Basophils % (Auto) 0 % (0-2.5); Eosinophils # (Auto) 0.2 Thou/mm3 (0.0-0.5); Eosinophils % (Auto) 1 % (0-10); Hematocrit 31.5 % (36.0-46.0); Hemoglobin 11.1 g/dL (12.0-16.0); Immature Granulocytes % (Auto) 1 % (0-0); Immature Granulocytes Auto 0.09 Thou/mm3 (0.00-0.00); Lymphocytes # (Auto) 2.8 Thou/mm3 (1.0-4.8); Lymphocytes % (Auto) 17 % (10-50); Mean Corpuscular HGB Conc 35.2 g/dl (31.0-37.0); Mean Corpuscular Hemoglobin 23.5 pg (25.0-35.0); Mean Corpuscular Volume 67 fL (80-100); Monocytes % (Auto) 6 % (0-12); Neutrophils # (Auto) 12.3 Thou/mm3 (1.8-7.7); Neutrophils % (Auto) 75 % (37-80); Nucleated Red Blood Cell % 0 /100 WBC (0); Platelet Count 332 Thou/mm3 (140-440); RDW Standard Deviation 33.5 fL (36.4-46.3); Red Blood Count 4.72 Miln/mm3 (4.00-5.20); White Blood Count 16.3 Thou/mm3 (4.5-11.0)
[2025-04-20 03:52] LABS: Syphilis Nonreactive (Nonreactive)
--- NOTE | 2025-04-20 08:07 | PD.LDHP ---
Documentation for date of: 04/20/25 OB Labor/Induct. HPI History of Present Illness Chief complaint: labor : 1 Para: 0 Term pregnancies: 0 pregnancies: 0 Living children: 0 History of Abortions: Spontaneous and Elective: 0 History of sections: No Date of last menstrual period: 07/13/24 GÓMEZ: 04/24/25 Gestational Age (weeks): 39 Gestational Age (days): 3 Gestational age based on last menstrual period: 40 History of present illness: This is a 20-year-old 1 para 0 presents to labor and delivery complaining of contractions that got worse since 10 PM. Patient has been followed by [facility] and [facility]. First visit was a 8 weeks. Last. July 18, 2024. Estimated due date 12/23/2024. Patient denies social habits. Denies surgery. Denies chronic illness. History of positive chlamydia with the that was treated along with her partner and test of cure was negative. GBS negative. Patient is O+, antibody screen negative, RPR nonreactive, rubella immune, hepatitis B negative, hep C negative, HIV negative, her iron stores have been great she is not anemic she had a normal 1 hour. And GBS negative. Denies leaking or bleeding History of Present Dating criteria: LMP confirmed by 1st trimester US Adequate Care: Yes Ultrasounds: normal 1st trimester US and normal mid trimester US Obstetrical complications: none Medical complications: none Labs Labs: Negative: Chlamydia, Gonorrhea and Group Beta Strep and Unknown: Hepatitis B, Rubella Titre, HIV, Herpes Type 1, Herpes Type 2 and Covid-19 Review of Systems Review of Systems Systems Reviewed: All systems reviewed, normal except as documented Past Medical History Surgical History SURGICAL: Negative Section Meds Home Medications and Allergies Home Medications ?Medication ?Instructions ?Recorded ?Confirmed ?Type vitamins no.42-folic acid tab PO 04/20/25 History 1.4 mg chew tablet,IR - DR,biphase Allergies Allergy/AdvReac Type Severity Reaction Status Date / Time No Known Allergies Allergy Verified 04/20/25 00:07 OB Exam Physical Exam Vital signs: Temp Pulse Resp BP Pulse Ox 99.4 F 93 18 118/78 99 04/20/25 00:29 04/20/25 07:59 04/20/25 00:29 04/20/25 07:59 04/20/25 08:04 Narrative: Alert and oriented. Normal heart rate and rhythm. Lungs clear no wheezes. Gravid abdomen. Gynecoid pelvis. Estimated weight 7 pounds's 14 ounces. Patient is vertex by Michael's. Examination 80%, 4, -1. Vertex. Slightly posterior. heart rate category 1 with accelerations and moderate variability and contractions were about every 4 to 5 minutes on admission Detailed Labor and Delivery Exam Dilation (cm): 4 Effacement (%): 80 Cervix position: mid station: -2 Consistency: soft Presentation: Vertex Cervical ripeness score: 8 Membranes: intact Baseline heart rate: 145 monitor accelerations: 15x15 monitor decelerations: None medical terminologist variability: Moderate (11-25) Contraction frequency (min): 4-5 Contraction duration (sec): 30 Tachysystole: No Contraction intensity: Moderate OB Results Labs 04/20/25 02:22 Labs: Short CBC 04/20/25 Range/Units 02:22 WBC 16.3 H (4.5-11.0) Thou/mm3 Hgb 11.1 L (12.0-16.0) g/dL Hct 31.5 L (36.0-46.0) % Plt Count 332 (140-440) Thou/mm3 OB Assessment & Plan Assessment and Plan (1) Normal labor and delivery: Status: Acute Additional Plan Induction method: none Plan: augmentation, anticipate NVD and consult MD joseph
--- NOTE | 2025-04-20 08:19 | XR_ITS ---
Examination: age Limited TECHNIQUE: Limited transabdominal sonographic images pelvis Date and time: April 20, 2025, 0920 hours INDICATIONS: Labor evaluation, preop induction today FINDINGS: Viable intrauterine gestation cephalic presentation spine maternal right Cardiac motion 132 BPM Amniotic fluid index 0 Estimated weight 3421 g Estimated age 38 weeks 2 days IMPRESSION: Viable intrauterine gestation cephalic presentation
[2025-04-20] MEDS: RINGERS LACTATED 500 ML 500 ML 999 ML IV (10:07)
[2025-04-20] MEDS: RINGERS LACTATED 1000 ML 1,000 ML 100 ML IV ×2 (10:09→10:38)
[2025-04-20] MEDS: OXYTOCIN in NS 30 units 30 UNIT/500 ML BAG IV (11:39)
[2025-04-20] MEDS: OXYTOCIN in NS 20 units 20 UNIT/1,000 ML BAG 125 UNIT IV (20:30)
[2025-04-20] MEDS: MISOPROSTOL 200 mCg TABLET 800 MCG PR (20:30)
[2025-04-20] MEDS: OXYTOCIN INJ 10 UNIT/ML VIAL IM (20:31)
[2025-04-20] MEDS: MINERAL OIL 30 ML UDC TOP (20:31)
--- NOTE | 2025-04-20 21:04 | PD.LDDELS ---
Data ([place]) Data Hx Section: No : 1 Term: 0 : 0 Livin Abortions: Spontaneous & Theraputic: 0 Delivery Data ([place]) Labor Data Initiation of labor: Augmentation Induction/Augmentation Agent: Pitocin and Artificial ROM ROM date: 04/20/25 ROM time: 08:00 Amniotic membrane rupture type: Artificial Amniotic fluid description: Light Meconium Delivery Data EDC: 04/22/25 EDC calculated by:: LMP/early US confirmation Date of arrival to unit: 04/20/25 Time of arrival to unit: 02:19 Onset of labor date: 04/20/25 Onset of labor time: 08:00 Complete dilation date: 04/20/25 Complete dilation time: 19:38 delivery date: 04/20/25 delivery time: 20:25 Gestational age (weeks): 39 Gestational age (days): 3 Placenta delivery date: 04/20/25 Placenta delivery time: 20:31 Stage 1 total time: Labor - Stage 1 Duration 11 hours and 38 minutes Delivered by: Ele Farmer Delivery nurse: Kat Farr nurse: Elizabeth Meza Gsa Coordinator at delivery: No Support person(s) at delivery: Mother- Nalee DAGOBERTO Aj Delivery Method Delivery method: Normal Vaginal Delivery Presentation: Vertex position: OA Anesthesia Type Anesthesia Type: Epidural Delivery Room Medications Delivery room medications: Pitocin 10 u IM, Pitocin 20 u IV and Cytotec 800 NM Placenta Placenta delivery description: Spontaneous (placenta intact,inspected) Cord blood sent to lab: Yes cord blood collection: Cord Blood Type Episiotomy Episiotomy description: None Lacerations #1: Vaginal: 1st degree (periurethral) Perineal repair Sutures used for repair: 3.0 Vicryl EBL Estimated blood loss (ml): 400 Umbilical Cord cord description: 3 Vessels [place] Data ([place]) Data [place]'s gender: Female Identification band number: [id number] weight (gms): 2980 g Weight (pounds): 6 lbs and 9.1 ozs length: 50.8 cm 1 minute: 9 5 minutes: 9
[2025-04-20] MEDS: TRANEXAMIC ACID 1,000 MG IVPB 1,000 MG/100 ML BAG 200 MG IV (21:22)
[2025-04-21] VITALS (7 sets, daily range): BP systolic 115–146; BP diastolic 72–88; PULSE 72–104; RESP 16–18; TEMP 36.4–37.2; O2SAT 98–99
[2025-04-21] MEDS: BENZO/LANO/ALOE (Dermoplast) 60 GM CAN 1 SPRAY TOP (01:30)
[2025-04-21 03:31] LABS: Basophils % (Auto) 0 % (0-2.5); Eosinophils % (Auto) 0 % (0-10); Hematocrit 29.3 % (36.0-46.0); Hemoglobin 10.5 g/dL (12.0-16.0); Immature Granulocytes % (Auto) 1 % (0-0); Immature Granulocytes Auto 0.09 Thou/mm3 (0.00-0.00); Lymphocytes # (Auto) 2.2 Thou/mm3 (1.0-4.8); Lymphocytes % (Auto) 11 % (10-50); Mean Corpuscular HGB Conc 35.8 g/dl (31.0-37.0); Mean Corpuscular Hemoglobin 23.7 pg (25.0-35.0); Mean Corpuscular Volume 66 fL (80-100); Monocytes # (Auto) 1.2 Thou/mm3 (0.0-0.8); Monocytes % (Auto) 6 % (0-12); Neutrophils # (Auto) 16.1 Thou/mm3 (1.8-7.7); Neutrophils % (Auto) 82 % (37-80); Nucleated Red Blood Cell % 0 /100 WBC (0); Platelet Count 262 Thou/mm3 (140-440); RDW Standard Deviation 33.5 fL (36.4-46.3); Red Blood Count 4.43 Miln/mm3 (4.00-5.20); White Blood Count 19.6 Thou/mm3 (4.5-11.0)
[2025-04-21 03:35] LABS: Path Review Blood Smear Sent to Pathologist
--- NOTE | 2025-04-21 07:10 | ESDS_ITS ---
DS: Providers Provider Date of admission: 04/20/25 02:19 Primary care physician: Physician No Primary/Family Admitting Provider: Sandra Ceja MD (OB Clinic) Attending Provider on Admission: Jerrell Meza MD Consults: 04/21/25 01:46 Referral Routine Comment: Attending Provider on DC: Jerrell Meza MD Discharging Provider: Jerrell Meza MD DS: Diagnosis Problem List Completed Was Problem List Reviewed/Reconciled?: Yes Summary/Hosp Course Brief History: This is a 20-year-old 1 para 0 presents to labor and delivery complaining of contractions that got worse since 10 PM. Patient has been followed by the [facility] and [facility] OB medical clinic. First visit was a 8 weeks. Last. July 18, 2024. Estimated due date 12/23/2024. Patient denies social habits. Denies surgery. Denies chronic illness. History of positive chlamydia with the that was treated along with her partner and test of cure was negative. GBS negative. Patient is O+, antibody screen negative, RPR nonreactive, rubella immune, hepatitis B negative, hep C negative, HIV negative, her iron stores have been great she is not anemic she had a normal 1 hour. And GBS negative. Denies leaking or bleeding Peripartum Data Delivery Method: Normal Vaginal Delivery Episiotomy Description: None Time Spent with Patient Time attestation: Total time spent providing and/or coordinating discharge services: Exam Vital Signs Temp Pulse Resp BP Pulse Ox O2 Del Method 99.0 F 88 18 120/81 98 Room Air 04/21/25 05:00 04/21/25 00:27 04/21/25 05:00 04/21/25 05:00 04/21/25 05:00 04/21/25 05:00 Discharge Plan Plan Patient Disposition: HOME (Self Care) Patient condition on transfer: Stable Prescriptions/Referrals Prescriptions/Med Rec: New ibuprofen 600 mg tablet 600 mg PO Q6H PRN (Reason: pain) Qty: 30 0RF Continued comb no.42-folic acid 1.4 mg tablet,chew,IR - DR,biphase PO Referrals: No Primary/Family,Physician [Primary Care Provider] - Patient/Caregiver Discharge Instructions Discharge Activity: activity as tolerated Other Discharge Activity Instructions:: Follow up with Adry in 6 weeks. Print Language: Occitan Stand Alone Forms: Lorri Award Info., Patient Portal Info Letter Planned Discharge Date 04/21/25
--- NOTE | 2025-04-21 08:20 | ESPR_ITS ---
RE: RADHA GILLIAM : 2005 DATE OF SERVICE: 04/21/2025 S: day #1, the patient denies any problem or complaints. She is voiding. She is ambulating. She is tolerating regular diet. She is passing flatus. She denies any excessive vaginal bleeding. She denies any dizziness or lightheadedness. She denies any chest pain, palpitations, shortness of breath, or lower extremity pain. O: Vital Signs: Blood pressure 120/81, heart rate 88, respirations 18, temperature is 99.0, and pulse oximetry is 98% on room air. Lungs: Clear to auscultation bilaterally. Heart: Regular rate and rhythm. Abdomen: Fundus is firm. Extremities: Nontender. LABORATORY DATA: Hemoglobin pre-delivery is 11.1. Post-delivery is 10.5. A: day #1, status post spontaneous vaginal delivery. P: Discharge home. Discharge instructions given. Follow up in the office in 6 weeks. DT: 07:08:50 TT: 08:18:00 Ref: [id number] - TID: [id number]
[2025-04-22 03:55] VITALS: BP 117/75; PULSE 82; RESP 18; TEMP 37; O2SAT 99
--- NOTE | 2025-04-22 06:43 | PD.LDPPPRG ---
Subjective Subjective Interval history: No complaints of pain. No dizziness. Bonding and breast-feeding Exam Vital Signs Temp Pulse Resp BP Pulse Ox O2 Del Method 98.6 F 82 18 117/75 99 Room Air 04/22/25 03:55 04/22/25 03:55 04/22/25 03:55 04/22/25 03:55 04/22/25 03:55 04/21/25 19:50 Narrative Exam Vital signs stable afebrile. Breasts are soft. Fundus firm below the umbilicus. Perineum intact no swelling. Small lochia. Uterus well involuted. Negative Homans' sign. 2+ DTRs Objective Labs 04/21/25 03:16 Assessment & Plan Problem List (1) Normal labor and delivery: Status: Acute Assessment Comment Assessment comment: 2nd day pp Plan Comment Plan Comment: Discharge home today with baby. Continue vitamins and iron. Tylenol or ibuprofen for pain. Discussed danger signs and symptoms and ER precautions. Discussed signs symptoms of infection. Increase fluids. Return in 3 weeks visit Time Spent With Patient Time: Total time spent is greater than 50% in coordination of care (as documented) at patient's floor/unit and/or counseling patient:
--- NOTE | 2025-04-22 06:45 | PD.LDDS ---
DS: Providers Provider Date of admission: 04/20/25 02:19 Primary care physician: Physician No Primary/Family Admitting Provider: Sandra Ceja MD (OB Clinic) Attending Provider on Admission: Jerrell Meza MD Consults: 04/21/25 01:46 Referral Routine Comment: Attending Provider on DC: Adry Farmer CNM Discharging Provider: Adry Farmer CNM DS: Diagnosis Problem List Completed Was Problem List Reviewed/Reconciled?: Yes Summary/Hosp Course Brief History: This is a 20-year-old 1 para 0 presents to labor and delivery complaining of contractions that got worse since 10 PM. Patient has been followed by the [facility] and [facility] OB medical clinic. First visit was a 8 weeks. Last. July 18, 2024. Estimated due date 12/23/2024. Patient denies social habits. Denies surgery. Denies chronic illness. History of positive chlamydia with the that was treated along with her partner and test of cure was negative. GBS negative. Patient is O+, antibody screen negative, RPR nonreactive, rubella immune, hepatitis B negative, hep C negative, HIV negative, her iron stores have been great she is not anemic she had a normal 1 hour. And GBS negative. Denies leaking or bleeding Peripartum Data Delivery Method: Normal Vaginal Delivery Episiotomy Description: None Laceration Description: yes (vaginal) complications: none Time Spent with Patient Time attestation: Total time spent providing and/or coordinating discharge services: Exam Vital Signs Temp Pulse Resp BP Pulse Ox O2 Del Method 98.6 F 82 18 117/75 99 Room Air 04/22/25 03:55 04/22/25 03:55 04/22/25 03:55 04/22/25 03:55 04/22/25 03:55 04/21/25 19:50 Discharge Plan Plan Patient Disposition: HOME (Self Care) Patient condition on transfer: Stable Prescriptions/Referrals Prescriptions/Med Rec: New ibuprofen 600 mg tablet 600 mg PO Q6H PRN (Reason: pain) Qty: 30 0RF Continued comb no.42-folic acid 1.4 mg tablet,chew,IR - DR,biphase PO Referrals: No Primary/Family,Physician [Primary Care Provider] - Patient/Caregiver Discharge Instructions Meds to Beds: No Discharge Activity: activity as tolerated Other Discharge Activity Instructions:: Follow up with Adry in 3 week Print Language: Maldivian Activity Restrictions/Additional Instructions: Home today with baby. Continue vitamins and iron. Tylenol ibuprofen for pain. Discussed danger signs and symptoms and signs symptoms of infection. Discussed ER precautions. Hydrate. Return in 3 weeks visit Stand Alone Forms: Lorri Award Info., Patient Portal Info Letter Discharge Order Discharge Orders: Discharge (Routine); Ordered 04/22/25 Ordered By: Adry Farmer Planned Discharge Date 04/22/25
[2025-04-22 08:40] VITALS: BP 108/70; PULSE 64; RESP 17; TEMP 36.6; O2SAT 99
== END 2025-04-22 18:43 | disposition home or self-care (01) | DRG 807 ==
LOC: S4SX 04-20 18:57 → S4NX 04-21 01:19
PROVIDERS: Advanced Practice Midwife; Admitting Provider Obstetrics & Gynecology; Visit Provider Specialist
DX: O77.0 Labor and delivery complicated by meconium in amniotic fluid (principal); Z37.0 Single live birth; O70.0 First degree perineal laceration during delivery; Z3A.39 39 weeks gestation of pregnancy
CPT/HCPCS: 36415; 59025; 59409; 59899; 76815; 85025; 86780; 86850; 86900; 86901; 94762; J2590; J2795; J3010; J3490; J7120; S0191; A9270

== ENCOUNTER 2025-05-22 08:45 | Outpatient (AMB) | payer BC, MEDICAID, SELFPAY ==
[2025-05-22 08:54] VITALS: BP 112/74; PULSE 54; RESP 18; TEMP 36.7; O2SAT 98
--- NOTE | 2025-05-22 08:54 | AMBOBPPN_ITS ---
Vital Signs 05/22/25 08:54 Weight 70.931 kg Weight Measurement Method Standing Scale BP 112/74 Blood Pressure Source Automatic Cuff Blood Pressure Location Right Upper Arm Position Sitting Respiration 18 Pulse 54 L Pulse Source Monitor Temp 98.1 F Temp Source Temporal Artery Scan Pulse Oximetry (%) 98 Oxygen Delivery Method Room Air Allergies/Home Meds Allergies & Medications Allergies No Known Allergies Allergy (Verified 05/22/25 08:54) Intake Visit Data Collection New Patient or Established: Established Patient (seen at [facility] within 3 years) Reason for Visit:: Consent obtained for Telemed Visit: No Seen by Clinical Staff ONLY (RN/MA): No Drainlayer Required: No Do You Feel Safe at Home: Yes Authorities Contacted: N/A PCP or OBGYN visit in last 3 months: Yes Date of Last PCP or OBGYN visit: 04/22/25 Hx Now: No Are you currently on any form of Control: No Pain Present Currently: No Pain Scale Used: Jeter-Degroot/Numerical Pain scale:: 0 Smoking Status Smoking Status: Never smoker [employer]: Past Medical History Past Medical History: No Hx Neurological Disorders, No Hx Hypothyroidism, No Hx Hyperthyroidism, No Hx Breast Cancer, No Hx Cardiac Disorders, No Hx Hypertension, No Hx Cancer, No Hx Blood Disorders, No Hx Anemia, No Hx Gastrointestinal Disorders, No Hx Renal Disease, No Hx Deep Vein Thrombosis, No Hx Diabetes Mellitus Type 1, No Hx Diabetes Mellitus Type 2, No Hx Tubal Ligation, No Hx Hysterectomy and No Psychiatric Problems Questionnaires Covid-19 Vaccine Questionnaire Has patient been vacinated for Covid-19 Have you been vacinated for Covid-19: Yes Social History Living Situation History Lives With: Family Housing: Apartment Tobacco History Smoking Status: Never smoker Second Hand Smoke Exposure: No Alcohol History Alcohol Intake: Never Domestic Abuse History Do You Feel Safe at Home: Yes EPDS - PP Depression Screening [place] Pospartum Depression Screen I have been able to laugh and see the funny side of things: (0) As much as I always could I have looked forward with enjoyment to things: (0) As much as I ever did I have blamed myself unnecessarily when things went wrong: (0) No, never I have been anxious or worried for no good reason: (0) No, not at all I have felt scared or panicky for no very good reason: (0) No, not at all Things have been getting on top of me: (0) No, I have been coping as well as ever I have been so unhappy that I have had difficulty sleeping: (0) No, not at all I have felt sad or miserable: (0) No, not at all I have been so unhappy that I have been crying: (0) No, never The thought of harming myself has occurred to me: (0) Never Care OB Visit Log OB Flowsheet Initial Weight: Not Recorded Date -?-?-?-?-?-?-?-?-?-?-?-?- EGA Weight BP Alb Glu CTX Pres Fundal ht FHR Mov Dilation Station Effacement Hx Notes Visit Note 02/14/25 -?-?-?-?-?-?-?-?-?-?-?-?- 30w 1d 74.899 kg 138/83 absent unknown 29 154 active No OB complaints today. Medical release was signed to [facility]. Tdap given to patient last visit. Reports movement. Denies labor complaints. Next visit at [facility] is February 24. PTL precautions provided to patient. Continue vitamins. Increase iron foods and continue IV supplement as well. Return in 2 weeks OB check 02/28/25 -?-?-?-?-?-?-?-?-?-?-?-?- 32w 1d 75.807 kg 121/78 absent cephalic 32 150 active fetus active, no labor complaints. patient will p/u records from [facility] today. increase fluids. tpl precaution, fkc bid 03/14/25 -?-?-?-?-?-?-?-?-?-?-?-?- 34w 1d 76.884 kg 123/81 absent cephalic 34 154 active fetus active, no PTL complaints, no leaking or bleeding, GBS NV, ptl precaution, fkc bid.rtc 2 week 03/28/25 -?-?-?-?-?-?-?-?-?-?-?-?- 36w 1d 77.791 kg 123/81 absent cephalic 36 156 active no ob complaints, fetus active, no labor complaints GBS today, discuss labor precaution, fkc bid, discuss danger s/s. RTC 1 week GBS today, discuss labor pre caution,discuss fkc bid, discuss danger s/s. RTC 1 week. discuss weight gain and exercise. reviewed FKC bid 04/04/25 -?-?-?-?-?-?-?-?-?-?-?-?- 37w 1d 78.245 kg 120/81 absent cephalic 37 156 active c/o pressure and cramps, reports good FM, denies leaking or bleeding discuss FKC bid, discuss labor precaution and ER precaution. increase fluids. rtc 1 week 04/11/25 -?-?-?-?-?-?-?-?-?-?-?-?- 38w 1d 79.379 kg 137/80 occasional cephalic 37 36 active 1 -3 50 c/o increased pressure and cramps, no LOF or bleeding, fetus active discuss labor precaution, fkc bid, comfort measure for prodromal labor. discuss danger s/s and ER precaution 04/19/25 -?-?-?-?-?-?-?-?-?--?-?-?- 39w 2d 79.946 kg 119/71 occasional cephalic 38 145 active 4 -1 70 increase pressure and cramps, no leaking or bleeding,fetus active sched IOL 04/24/25. discuss labor precaution, fkc bid, discuss ER precaution and danger s/s.rtc 1 week GÓMEZ Calculator Estimated Delivery Date Method Current WG Current Estimate 04/24/25 Ultrasound #1 44w 0d Other Estimates 04/24/25 LMP (Certain) 44w 0d Notes Visit Date: 04/19/25 Last Updated by: Adry Farmer CNM GBS- Visit Date: 04/11/25 Last Updated by: Adry Farmer CNM 20 yo . lmp: 07/18/24. EDC 04/24/24, O+,abs-,rpr;;nr, GC-/CT+, LAYLA: GC-?CT-, GTT normal HPI Contraception planned: poss nexplanon Review of Systems Review of Systems ROS limited to current [employer] complaints: Yes Exam Narrative Physical exam: vital sign stable. normal heart rate. lungs clear. fundus firm, below umb. 2 +dtr, negaive homans. perineum intact, healing External exam: Present normal external exam Office Procedures OB Clinic LOC & Office Proc's Nursing/Assessment Patient Status: Established Patient OB Clinic Nursing Assessment: Medication Reconciliation, Update PMH in EMR and Vital Signs OB Clinic Coordination of Care: Complex Care/Chronic Disease 5 or more, Education Complex Pt/Fam, Consent,records obtained, informed consent and 4+ Authorizations needed Established Patient Charge Established Patient Point Assignment: 115 Post Follow-up Visit Post Follow up Visit: Yes Assessment & Plan Diagnosis / Problem List (1) 2 weeks follow-up: Status: Acute Plan discuss contraception option, no sex. continue PNV, rest. increase fluids. rtc 3 week. possible nexplanon insert Care Reviewed delivery summary and any complications: Yes Uterus involuted to: 2 below umb Perineal / incision healing noted: Yes Screened for depression: Yes Depression counseling provided: No Discussed family planning & contraception: Yes Contraception planned: poss nexplanon Counseling on safe resumption of sexual activity: Yes Counseling on gradual excercise: Yes Discussed and concerns (describe), provided support: No Referred to transportation specialist: No Counseled on good nutrition, hydration, and self care: Yes Reviewed vaccine status: No Chronic & current problems reconciled on problem list: Yes Infant care discussed; questions answered: feeding Follow up: routine/prn Additional counseling & anticipatory guidance provided: no sex, rtc 6 week pp and possible nexplanon insert
== END 2025-05-22 09:59 | disposition home or self-care (01) ==
LOC: HODSOBC 08:45
PROVIDERS: Supervising Provider Advanced Practice Midwife; Visit Provider Advanced Practice Midwife
DX: Z39.2 Encounter for routine postpartum follow-up (principal)
CPT/HCPCS: Z1038

== ENCOUNTER 2025-06-12 14:45 | Outpatient (AMB) | payer BC, MEDICAID, SELFPAY ==
--- NOTE | 2025-06-12 15:03 | AMB.OBPP ---
Vital Signs 06/12/25 15:07 Height 1.55 m Height Method Stated Weight 70.987 kg Weight Measurement Method Standing Scale BMI 29.5 BP 111/70 Blood Pressure Source Automatic Cuff Blood Pressure Location Right Upper Arm Position Sitting Respiration 17 Pulse 52 L Pulse Source Monitor Temp 98.3 F Temp Source Temporal Artery Scan Pulse Oximetry (%) 98 Oxygen Delivery Method Room Air Allergies/Home Meds Allergies & Medications Allergies No Known Allergies Allergy (Verified 06/12/25 15:08) Medication Reconciliation vitamins no.42-folic acid 1.4 mg chew tablet,IR - DR,biphase tab PO 04/20/25 [History Confirmed 06/12/25] ibuprofen 600 mg tablet 600 mg PO Q6H PRN pain #30 tabs 04/21/25 [Rx Confirmed 06/12/25] Intake Visit Data Collection New Patient or Established: Established Patient (seen at [facility] within 3 years) Reason for Visit:: 7WEEKS Seen by Clinical Staff ONLY (RN/MA): No Transportation Maintenance Supervisor Required: No Do You Feel Safe at Home: Yes Authorities Contacted: N/A PCP or OBGYN visit in last 3 months: Yes Date of Last PCP or OBGYN visit: 05/22/25 Hx Now: No Are you currently on any form of Control: No Pain Present Currently: No Pain Scale Used: Jeter-Degroot/Numerical Pain scale:: 0 Smoking Status Smoking Status: Never smoker [employer]ODUCTION WORKER: Past Medical History Past Medical History: No Hx Neurological Disorders, No Hx Hypothyroidism, No Hx Hyperthyroidism, No Hx Breast Cancer, No Hx Cardiac Disorders, No Hx Hypertension, No Hx Cancer, No Hx Blood Disorders, No Hx Anemia, No Hx Gastrointestinal Disorders, No Hx Renal Disease, No Hx Deep Vein Thrombosis, No Hx Diabetes Mellitus Type 1, No Hx Diabetes Mellitus Type 2, No Hx Tubal Ligation, No Hx Hysterectomy and No Psychiatric Problems Questionnaires Covid-19 Vaccine Questionnaire Has patient been vacinated for Covid-19 Have you been vacinated for Covid-19: No Social History Living Situation History Marital Status: Life Partner Lives With: Family Housing: Apartment Tobacco History Smoking Status: Never smoker Second Hand Smoke Exposure: No Alcohol History Alcohol Intake: Never Domestic Abuse History Do You Feel Safe at Home: Yes EPDS - PP Depression Screening [place] Pospartum Depression Screen I have been able to laugh and see the funny side of things: (0) As much as I always could I have looked forward with enjoyment to things: (0) As much as I ever did I have blamed myself unnecessarily when things went wrong: (0) No, never I have been anxious or worried for no good reason: (0) No, not at all I have felt scared or panicky for no very good reason: (0) No, not at all Things have been getting on top of me: (0) No, I have been coping as well as ever I have been so unhappy that I have had difficulty sleeping: (0) No, not at all I have felt sad or miserable: (0) No, not at all I have been so unhappy that I have been crying: (0) No, never The thought of harming myself has occurred to me: (0) Never EPDS completed yes Care OB Visit Log OB Flowsheet Initial Weight: Not Recorded Date <del>?</del> EGA Weight BP Alb Glu CTX Pres Fundal ht FHR Mov Dilation Station Effacement Hx Notes Visit Note 02/14/25 <del>?</del> 30w 1d 74.899 kg 138/83 absent unknown 29 154 active No OB complaints today. Medical release was signed to [facility]. Tdap given to patient last visit. Reports movement. Denies labor complaints. Next visit at maternal[facility] medicine is February 24. PTL precautions provided to patient. Continue vitamins. Increase iron foods and continue IV supplement as well. Return in 2 weeks OB check 02/28/25 <del>?</del> 32w 1d 75.807 kg 121/78 absent cephalic 32 150 active fetus active, no labor complaints. patient will p/u records from [facility] today. increase fluids. tpl precaution, fkc bid 03/14/25 <del>?</del> 34w 1d 76.884 kg 123/81 absent cephalic 34 154 active fetus active, no PTL complaints, no leaking or bleeding, GBS NV, ptl precaution, fkc bid.rtc 2 week 03/28/25 <del>?</del> 36w 1d 77.791 kg 123/81 absent cephalic 36 156 active no ob complaints, fetus active, no labor complaints GBS today, discuss labor precaution, fkc bid, discuss danger s/s. RTC 1 week GBS today, discuss labor precaution,discuss fkc bid, discuss danger s/s. RTC 1 week. discuss weight gain and exercise. reviewed FKC bid 04/04/25 <del>?</del> 37w 1d 78.245 kg 120/81 absent cephalic 37 156 active c/o pressure and cramps, reports good FM, denies leaking or bleeding discuss FKC bid, discuss labor precaution and ER precaution. increase fluids. rtc 1 week 04/11/25 <del>?</del> 38w 1d 79.379 kg 137/80 occasional cephalic 37 36 active 1 -3 50 c/o increased pressure and cramps, no LOF or bleeding, fetus active discuss labor precaution, fkc bid, comfort measure for prodromal labor. discuss danger s/s and ER precaution 04/19/25 <del>?</del> 39w 2d 79.946 kg 119/71 occasional cephalic 38 145 active 4 -1 70 increase pressure and cramps, no leaking or bleeding,fetus active sched IOL 04/24/25. discuss labor precaution, fkc bid, discuss ER precaution and danger s/s.rtc 1 week GÓMEZ Calculator Estimated Delivery Date Method Current WG Current Estimate 04/24/25 Ultrasound #1 47w 0d Other Estimates 04/24/25 LMP (Certain) 47w 0d Notes Visit Date: 04/19/25 Last Updated by: Adry Farmer CNM GBS- Visit Date: 04/11/25 Last Updated by: Adry Farmer CNM 20 yo . lmp: 07/18/24. EDC 04/24/24, O+,abs-,rpr;;nr, GC-/CT+, LAYLA: GC-?CT-, GTT normal HPI Interval History: 20-year-old 1 para 0 for 7-week . Patient had a baby girl April 20, 2025. She is bottlefeeding. No interval complaints. She is happy no depression. Patient and her partner live with her mom. Patient has not had sex yet. She has not had a period yet. And patient is unsure what she wants to use about control. 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 Lungs clear no wheezes. Abdomen is soft nontender. Uterus well involuted. Perineum is intact no lacerations. No swelling. Small lochia. Negative Homans' sign. 2+ DTRs. No edema no swelling. Breasts are soft General Limitations: no limitations General Appearance: alert, in no apparent distress, comfortable, cooperative, healthy appearing, well developed and well groomed Head Head exam: atraumatic, normocephalic and normal inspection Chest Chest inspection: Present normal inspection and symmetric chest wall rise Resp Respiratory exam: Present normal lung sounds bilaterally External exam: Present normal external exam Speculum exam: Present normal speculum exam Bimanual exam: Present normal bimanual exam Psych Psychiatric exam: Present normal affect and normal mood Office Procedures OB Clinic LOC & Office Proc's Nursing/Assessment Patient Status: Established Patient OB Clinic Nursing Assessment: Medication Reconciliation, Update PMH in EMR and Vital Signs OB Clinic Coordination of Care: Complex Care and Chronic Disease 1-5, Consent,records obtained, informed consent, Education Simp Pt/Fam and Staff clarify orders Established Patient Charge Established Patient Point Assignment: 85 Post Follow-up Visit Post Follow up Visit: Yes Assessment & Plan Diagnosis / Problem List (1) 6 weeks follow-up: Status: Acute Plan Discussed condom use. Discussed comfort measures when initiating sex after vaginal delivery. Discussed safe sex. Patient will return in a year for Pap. Okay to start walking and regular exercise. Increase fluids. Take multivitamin. And return when she is ready for control or in a year for Pap Care Reviewed delivery summary and any complications: No Uterus involuted to: 3 below umb Perineal / incision healing noted: Yes Screened for depression: Yes Depression counseling provided: No Discussed family planning & contraception: Yes Contraception planned: unsure, possible depo Counseling on safe resumption of sexual activity: Yes Counseling on gradual excercise: Yes Discussed and concerns (describe), provided support: No Referred to system specialist: No Counseled on good nutrition, hydration, and self care: Yes Reviewed vaccine status: No Chronic & current problems reconciled on problem list: Yes Additional follow up plans: return in 1 year for pap care discussed; questions answered: feeding and sleep Follow up: routine/prn Additional counseling & anticipatory guidance provided: rtc 1 year or sooner for control
[2025-06-12 15:07] VITALS: BP 111/70; PULSE 52; RESP 17; TEMP 36.8; O2SAT 98; BMI 29.5
== END 2025-06-12 15:54 | disposition home or self-care (01) ==
LOC: HODSOBC 14:45
PROVIDERS: Supervising Provider Advanced Practice Midwife; Visit Provider Advanced Practice Midwife
DX: Z39.2 Encounter for routine postpartum follow-up (principal)
CPT/HCPCS: Z1038